=== PATIENT | male | born 1950 | race African-American/Black ===

== ENCOUNTER 2017-03-12 14:38 | Inpatient (IN) | payer MEDICARE, MEDICAID ==
[~2017-03-12] VITALS: Ht 193 cm; Wt 96.6 kg
[~2017-03-12 14:38] MED LIST: ACYC200C PO; ASPI-1159 PO; PARI1CAP3 PO; SEVE800T8 PO
[2017-03-12] MEDS ORDERED: ASPIRIN 81MG TABLET PO STA (15:05)
[2017-03-12] MEDS ORDERED: ONDANSETRON HCL 4MG/2ML VIAL IV STA (15:05)
[2017-03-12] MEDS ORDERED: NITROGLYCERIN 0.4MG TABLET SL SL PRN ×2 (15:15→21:45)
[2017-03-12 15:33] LABS: HEMATOCRIT. 35.1 % (42.0-52.0); HEMOGLOBIN. 11.2 g/dL (14.0-18.0); MEAN CORPUSCULAR HEMOGLOBIN 28.1 pg (28.0-32.0); MEAN CORPUSCULAR VOLUME 88.1 fL (80.0-94.0); MEAN PLATELET VOLUME 8.5 fl (7.4-10.4); PLATELET 300 x1000/uL (130-400); RED BLOOD CELL COUNT 3.98 mill/uL (4.7-6.1); RED CELL DISTRIBUTION WIDTH 19.6 % (11.6-14.6)
[2017-03-12 15:41] LABS: INR 1.2; PARTIAL THROMBOPLASTIN TIME 26.8 sec (23.4-31.0); PROTHROMBIN TIME 12.2 sec (9.4-11.6)
[2017-03-12 15:48] LABS: CARBON DIOXIDE 27 mEq/L (21-32); CHLORIDE 97 mEq/L (98-107)
[2017-03-12 15:53] LABS: TROPONIN I < 0.02 ng/mL (0.00-0.04)
[2017-03-12 17:07] LABS: PLATELET ESTIMATE NORMAL
[2017-03-12 20:30] VITALS: BP 100/76
[2017-03-12] MEDS ORDERED: DIPHENHYDRAMINE 50MG/ML VIAL IV PRN (21:30)
[2017-03-12] MEDS ORDERED: ONDANSETRON HCL 4MG/2ML VIAL IV PRN (21:30)
[2017-03-12] MEDS ORDERED: DOCUSATE SODIUM 100MG CAPSULE PO PRN (21:30)
[2017-03-12] MEDS ORDERED: CLONIDINE 0.1MG TABLET PO PRN (21:30)
[2017-03-12] MEDS ORDERED: HYDROMORPHONE HCL/PF 2MG/ML CPJ IV PRN ×2 (21:30→21:45)
[2017-03-12] MEDS ORDERED: HYDROCODONE/APAP 7.5/325MG 1 TAB TABLET PO PRN (21:45)
[2017-03-12] MEDS ORDERED: ZOLPIDEM TARTRATE 5MG TABLET PO PRN (21:45)
[2017-03-12] MEDS: SODIUM CHLORIDE 0.9% INJ 3ML FLUSH IVF SCH (21:52)
[2017-03-13] VITALS: BP 106/66
[2017-03-13 04:00] VITALS: BP 96/69
[2017-03-13] MEDS: SODIUM CHLORIDE 0.9% INJ 3ML FLUSH IVF SCH ×3 (06:08→22:18)
[2017-03-13 08:00] VITALS: BP 108/69
[2017-03-13] MEDS: SEVELAMER CARBONATE 800 MG TABLET PO SCH ×3 (08:10→18:06)
[2017-03-13] MEDS ORDERED: LIDOCAINE HCL 1% 20ML VIAL (Pyxis) INJ ONE (09:11)
[2017-03-13 11:04] LABS: HEMOGLOBIN. 10.4 g/dL (14.0-18.0); MEAN CORPUSCULAR HEMOGLOBIN 27.8 pg (28.0-32.0); MEAN CORPUSCULAR VOLUME 88.4 fL (80.0-94.0); MEAN PLATELET VOLUME 8.6 fl (7.4-10.4); PLATELET 332 x1000/uL (130-400); RED BLOOD CELL COUNT 3.73 mill/uL (4.7-6.1); RED CELL DISTRIBUTION WIDTH 19.9 % (11.6-14.6)
[2017-03-13 12:00] VITALS: BP 110/71
[2017-03-13 16:00] VITALS: BP 129/85
[2017-03-13] MEDS ORDERED: POTASSIUM CHLORIDE 20MEQ TABLET SR PO NR (16:45)
[2017-03-13 20:00] VITALS: BP 113/68
[2017-03-13 22:41] LABS: ATYPICAL LYMPHOCYTES 1; PLATELET ESTIMATE NORMAL
[2017-03-13] MEDS: ACETAMINOPHEN 325MG TABLET PO PRN (23:21)
[2017-03-14] VITALS: BP 122/66
[2017-03-14] MEDS: SODIUM CHLORIDE 0.9% INJ 3ML FLUSH IVF SCH ×3 (05:47→23:02)
[2017-03-14] MEDS: SEVELAMER CARBONATE 800 MG TABLET PO SCH ×3 (08:26→17:40)
[2017-03-14] MEDS: OMEPRAZOLE 20MG CAPSULE EXTENDED RELEASE PO SCH (08:26)
[2017-03-14 12:00] VITALS: BP 101/57
[2017-03-14 16:00] VITALS: BP 109/58
[2017-03-14 16:41] LABS: HEMATOCRIT. 33.7 % (42.0-52.0); HEMOGLOBIN. 10.6 g/dL (14.0-18.0); MEAN CORPUSCULAR HEMOGLOBIN 27.6 pg (28.0-32.0); MEAN CORPUSCULAR VOLUME 87.5 fL (80.0-94.0); PLATELET 307 x1000/uL (130-400); RED BLOOD CELL COUNT 3.85 mill/uL (4.7-6.1)
[2017-03-14 17:07] LABS: CARBON DIOXIDE 24 mEq/L (21-32); CHLORIDE 100 mEq/L (98-107); TROPONIN I < 0.02 ng/mL (0.00-0.04)
[2017-03-14 17:29] LABS: PLATELET ESTIMATE NORMAL
[2017-03-14 20:00] VITALS: BP 121/70
[2017-03-15] VITALS (10 sets, daily range): BP systolic 108–125; BP diastolic 65–83
[2017-03-15] MEDS: SODIUM CHLORIDE 0.9% INJ 3ML FLUSH IVF SCH ×3 (06:42→22:00)
[2017-03-15] MEDS: OMEPRAZOLE 20MG CAPSULE EXTENDED RELEASE PO SCH ×3 (07:40→20:32)
[2017-03-15] MEDS: SEVELAMER CARBONATE 800 MG TABLET PO SCH ×3 (08:02→18:10)
[2017-03-15] MEDS ORDERED: LIDOCAINE HCL 1% 20ML VIAL (Pyxis) INJ ONE ×2 (08:22→09:27)
[2017-03-15] MEDS ORDERED: HEPARIN 1000 UNITS/ML 10ML ONE (08:23)
[2017-03-15] MEDS ORDERED: SODIUM BICARBONATE 4% (2.4MEQ) 5ML VIAL IV ONE (08:23)
[2017-03-15] MEDS ORDERED: CEFAZOLIN 1000MG PREMIX 50 ML IV ONE ×2 (08:25→09:30)
[2017-03-15] MEDS ORDERED: FENTANYL CITRATE/PF 50MCG/ML 2ML VIAL ONE (08:26)
[2017-03-15] MEDS ORDERED: DIPHENHYDRAMINE 50MG/ML VIAL ONE (08:26)
[2017-03-15] MEDS ORDERED: FENTANYL CITRATE/PF 50MCG/ML 2ML VIAL IV ONE (09:30)
[2017-03-15] MEDS ORDERED: ACETAMINOPHEN WITH CODEINE 300/60MG TABLET PO PRN (10:45)
[2017-03-15 16:23] LABS: INR 1.1
[2017-03-15 16:24] LABS: HEMATOCRIT. 30.8 % (42.0-52.0); HEMOGLOBIN. 9.8 g/dL (14.0-18.0); MEAN CORPUSCULAR HEMOGLOBIN 27.8 pg (28.0-32.0); MEAN CORPUSCULAR VOLUME 87.6 fL (80.0-94.0); MEAN PLATELET VOLUME 8.4 fl (7.4-10.4); PLATELET 267 x1000/uL (130-400); RED BLOOD CELL COUNT 3.52 mill/uL (4.7-6.1)
[2017-03-15 17:05] LABS: PLATELET ESTIMATE NORMAL
[2017-03-15] MEDS: ACETAMINOPHEN 325MG TABLET PO PRN (20:32)
[2017-03-15] MEDS ORDERED: AMIODARONE HCL 200 MG TABLET PO SCH (21:00)
[2017-03-16] MEDS: SODIUM CHLORIDE 0.9% INJ 3ML FLUSH IVF SCH (05:23)
[2017-03-16] MEDS ORDERED: IOHEXOL-300 100 ML BOTTLE ONE (07:28)
[2017-03-16 08:00] VITALS: BP 116/79
== END 2017-03-16 10:15 | disposition left against medical advice (07) | DRG 314 ==
LOC: ER 14:47 → 7WST 16:25 → EDBEDREQTM 16:30 → EDBEDREQ 16:30 → ENRESERV 18:17 → EDBEDREQ 20:30
PROVIDERS: ADMIT Internal Medicine Nephrology; ATTEND Internal Medicine Nephrology
PROC: 02HV33Z Insertion of Infusion Device into Superior Vena Cava, Percutaneous Approach (ICD-10-PCS; principal; 2017-03-13)
PROC: B548ZZA Ultrasonography of Superior Vena Cava, Guidance (ICD-10-PCS; 2017-03-13)
PROC: 5A1D70Z Performance of Urinary Filtration, Intermittent, Less than 6 Hours Per Day (ICD-10-PCS; 2017-03-13)
PROC: 06PY33Z Removal of Infusion Device from Lower Vein, Percutaneous Approach (ICD-10-PCS; 2017-03-15)
PROC: 02HV33Z Insertion of Infusion Device into Superior Vena Cava, Percutaneous Approach (ICD-10-PCS; 2017-03-15)
PROC: B5181ZA Fluoroscopy of Superior Vena Cava using Low Osmolar Contrast, Guidance (ICD-10-PCS; 2017-03-15)
PROC: B51W1ZZ Fluoroscopy of Dialysis Shunt/Fistula using Low Osmolar Contrast (ICD-10-PCS; 2017-03-15)
PROC: B51M1ZA Fluoroscopy of Right Upper Extremity Veins using Low Osmolar Contrast, Guidance (ICD-10-PCS; 2017-03-15)
DX: T82.868A Thrombosis due to vascular prosthetic devices, implants and grafts, initial encounter (principal); N18.6 End stage renal disease; I12.0 Hypertensive chronic kidney disease with stage 5 chronic kidney disease or end stage renal disease; C90.00 Multiple myeloma not having achieved remission; G62.9 Polyneuropathy, unspecified; C61 Malignant neoplasm of prostate; I48.0 Paroxysmal atrial fibrillation; D63.1 Anemia in chronic kidney disease; E03.9 Hypothyroidism, unspecified; Z53.21 Procedure and treatment not carried out due to patient leaving prior to being seen by health care provider; K29.50 Unspecified chronic gastritis without bleeding; R07.89 Other chest pain; E05.80 Other thyrotoxicosis without thyrotoxic crisis or storm; I49.9 Cardiac arrhythmia, unspecified; Y83.2 Surgical operation with anastomosis, bypass or graft as the cause of abnormal reaction of the patient, or of later complication, without mention of misadventure at the time of the procedure; F32.9 Major depressive disorder, single episode, unspecified; K21.9 Gastro-esophageal reflux disease without esophagitis; T46.2X5A Adverse effect of other antidysrhythmic drugs, initial encounter; Z99.2 Dependence on renal dialysis; Y92.89 Other specified places as the place of occurrence of the external cause; Z85.830 Personal history of malignant neoplasm of bone; Z79.82 Long term (current) use of aspirin; Z92.21 Personal history of antineoplastic chemotherapy; Z85.028 Personal history of other malignant neoplasm of stomach
CPT/HCPCS: 36415; 36558; 36569; 36589; 36901; 71010; 76937; 77001; 80048; 80053; 83690; 83735; 83880; 84443; 84481; 84484; 85025; 85610; 85730; 87040; 92610; 93005; 93306; 99285; C1725; C1750; C1766; C1769; J0690; J1200; J1642; J1644; J2405; J3010; J3490; J7030; J7050; Q9967